=== PATIENT | female | born 1945 | race African-American/Black ===

== ENCOUNTER 2024-12-04 08:30 | Emergency (ER) | payer MEDICARE, OTHER, SELFPAY ==
[2024-12-04 08:33] VITALS: BP 151/77
[2024-12-04 08:34] VITALS: BP 151/77; BMI 25.6
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
[2024-12-04 09:00] VITALS: BP 161/79
[2024-12-04 09:15] LABS: Hematocrit 39.6 % (37.0-47.0); Hemoglobin 12.8 g/dL (12.0-16.0); Mean Corp Hgb Conc. 32.3 g/dL (33.0-37.0); Mean Corpuscular Volume 90.2 fL (81.0-99.0); Nucleated Red Blood Cells % 0 %; Platelet Count 177 10^3/uL (130-400); Red Cell Dist. Width 15.0 % (11.5-14.5)
[2024-12-04 09:17] LABS: Urine Character Clear (Clear)
[2024-12-04 09:24] LABS: Urine Red Blood Cell 0-2 /HPF (0-2); Urine Squamous Cell 0-2 /LPF (Few)
[2024-12-04 09:36] LABS: ALT (SGPT) 36 U/L (0-35); AST (SGOT) 35 U/L (14-36); Albumin 4.2 g/dl (3.5-5.0); Alkaline Phosphatase 63 U/L (38-126); Blood Urea Nitrogen 13 mg/dl (7-17); Calcium 9.2 mg/dl (8.4-10.2); Carbon Dioxide 26 mmol/L (22-30); Chloride 108 mmol/L (98-107); Estimated Creatinine Clearance 71 ml/min; Glucose 101 mg/dl (70-99); Potassium 4.2 mmol/L (3.5-5.1); Sodium 138 mmol/L (135-145); Total Protein 7.4 g/dl (6.3-8.2); eGFR > 60.00
[2024-12-04 10:00] VITALS: BP 137/66
--- NOTE | 2024-12-04 11:34 | CM ---
Received a call from Yani from [facility]. She requested ED physician note, faxed to [phone].
== END 2024-12-04 11:57 | disposition home or self-care (01) ==
LOC: EMR 08:30
PROVIDERS: EMERGENCY PHYSICIAN Emergency Medicine; FAMILY PHYSICIAN Internal Medicine
DX: Z04.41 Encounter for examination and observation following alleged adult rape (principal); F03.90 Unspecified dementia, unspecified severity, without behavioral disturbance, psychotic disturbance, mood disturbance, and anxiety
CPT/HCPCS: 99284; 70450; 80053; 81003; 81015; 84443; 85025; 87086